=== PATIENT | male | born 1960 | race Caucasian/White ===

== ENCOUNTER 2021-08-14 13:00 | Day surgery (SDC) | payer OTHER ==
[2021-08-14 13:19] LABS: BASOPHILS # (AUTO) 0.1 10^3/uL (0.0-0.1); BASOPHILS % (AUTO) 0.9 %; EOSINOPHILS # (AUTO) 0.2 10^3/uL (0.0-0.7); EOSINOPHILS % (AUTO) 2.6 %; HCT - HEMATOCRIT 52.1 % (42.0-52.0); HGB - HEMOGLOBIN 17.6 g/dL (14.0-18.0); LYMPHOCYTES % (AUTO) 35.1 %; MEAN CORPUSCULAR HEMOGLOBIN 32.5 pg (27.0-31.0); MEAN CORPUSCULAR HGB CONC 33.8 g/dL (32.0-36.0); MEAN CORPUSCULAR VOLUME 96.1 fL (80.0-94.0); MEAN PLATELET VOLUME 9.8 fL (7.4-11.4); MONOCYTES # (AUTO) 0.7 10^3/uL (0.0-1.0); MONOCYTES % (AUTO) 12.4 %; NEUTROPHILS # (AUTO) 2.9 10^3/uL (1.5-6.6); NEUTROPHILS % (AUTO) 48.8 %; PLT - PLATELET COUNT 194 10^3/uL (130-450); RED BLOOD COUNT 5.42 10^6/uL (4.70-6.10); RED CELL DISTRIBUTION WIDTH 13.1 % (12.0-15.0); WHITE BLOOD COUNT 5.8 x10^3/uL (4.8-10.8)
[2021-08-14 13:31] LABS: ALBUMIN 4.3 g/dL (3.2-5.5); ALBUMIN/GLOBULIN RATIO 1.4 (1.0-2.2); BILIRUBIN,TOTAL 0.9 mg/dL (0.2-1.0); CALCIUM 9.6 mg/dL (8.5-10.3); CREATININE 1.5 mg/dL (0.6-1.2); POTASSIUM 4.6 mmol/L (3.5-5.0); TOTAL PROTEIN 7.4 g/dL (6.7-8.2)
[2021-08-14] MEDS ORDERED: HYDROmorphone 1 MG/ML CARPUJECT IVP STA (14:45)
[2021-08-14] MEDS ORDERED: MIDAZOLAM 2 MG/2 ML VIAL IVP STA (14:45)
--- NOTE | 2021-08-14 14:46 | ED Physician Documentation ---
PD HPI ABD PAIN - Stated complaint Stated Complaint: HERNIA PX - Chief complaint Chief Complaint: Abd Pain - History obtained from History obtained from: Patient - Additional information Additional information: 61-year-old gentleman with longstanding umbilical hernia. Only has bothered him mildly in the past. Over the 36 hours preceding his ER visit he has had progressive pain and discomfort there. Nausea but no vomiting. He has had slightly diminished bowel movements but not absent. No history of abdominal surgeries except for kidney stone removal. Review of Systems Ten Systems: 10 systems reviewed and negative Constitutional: reports: Reviewed and negative Eyes: reports: Reviewed and negative Ears: reports: Reviewed and negative PD PAST MEDICAL HISTORY - Allergies Allergies/Adverse Reactions: Allergies Allergy/AdvReac Type Severity Reaction Status Date / Time No Known Drug Allergies Allergy Verified 08/14/21 13:09 PD ED PE NORMAL - Vitals Vital signs reviewed: Yes - General General: Alert and oriented X 3, No acute distress - HEENT HEENT: PERRL, EOMI, Pharynx benign - Neck Neck: Supple, no meningeal sign, No bony TTP - Cardiac Cardiac: RRR, No murmur - Respiratory Respiratory: No respiratory distress, Clear bilaterally - Abdomen Abdomen: Other (He has a incarcerated umbilical hernia which is profoundly tender no diffuse tenderness of the abdomen.) - Extremities Extremities: No edema, No calf tenderness / cord - Neuro Neuro: Alert and oriented X 3, Normal speech Results - Vitals Vitals: Vital Signs - 24 hr 08/14/21 08/14/21 08/14/21 13:07 15:07 15:30 Temperature 36.7 C Heart Rate 69 63 60 Respiratory 16 11 L 10 L Rate Blood Pressure 141/93 H 134/97 H 134/97 H O2 Saturation 99 98 94 08/14/21 17:39 Temperature Heart Rate 65 Respiratory 11 L Rate Blood Pressure 126/93 H O2 Saturation 96 Oxygen O2 Source Room air - Labs Labs: Laboratory Tests 08/14/21 08/14/21 08/14/21 13:16 13:16 14:58 WBC 5.8 RBC 5.42 Hgb 17.6 Hct 52.1 H MCV 96.1 H MCH 32.5 H MCHC 33.8 RDW 13.1 Plt Count 194 MPV 9.8 Neut # (Auto) 2.9 Lymph # (Auto) 2.0 [place] # (Auto) 0.7 Eos # (Auto) 0.2 Baso # (Auto) 0.1 Absolute Nucleated RBC 0.00 Nucleated RBC % 0.0 Sodium 138 Potassium 4.6 Chloride 100 L Carbon Dioxide 28 Anion Gap 10.0 BUN 23 H Creatinine 1.5 H Estimated GFR (MDRD) 48 L Glucose 97 Calcium 9.6 Total Bilirubin 0.9 AST 23 ALT 25 Alkaline Phosphatase 66 Total Protein 7.4 Albumin 4.3 Globulin 3.1 Albumin/Globulin Ratio 1.4 Lipase 30 Urine Color YELLOW Urine Clarity CLEAR Urine pH 5.5 Ur Specific [place] >=1.030 H Urine Protein NEGATIVE Urine Glucose (UA) NEGATIVE Urine Ketones NEGATIVE Urine Occult Blood TRACE-INTA Urine Nitrite NEGATIVE Urine Bilirubin NEGATIVE Urine Urobilinogen 0.2 (NORMAL) Ur Leukocyte Esterase NEGATIVE Ur Microscopic Review NOT INDICATED Urine Culture Comments NOT INDICATED Nasal Adenovirus (PCR) Nasal B. parapertussis DNA (PCR) Nasal Coronavir 229E PCR Nasal Coronavir HKU1 PCR Nasal Coronavir NL63 PCR Nasal Coronavir OC43 PCR Nasal Enterovir/Rhinovir PCR Nasal Influenza B PCR Nasal Influenza A PCR Nasal Parainfluen 1 PCR Nasal Parainfluen 2 PCR Nasal Parainfluen 3 PCR Nasal Parainfluen 4 PCR Nasal RSV (PCR) Nasal B.pertussis DNA PCR Nasal C.pneumoniae (PCR) [place] Human Metapneumo PCR Nasal M.pneumoniae (PCR) Nasal SARS-CoV-2 (PCR) 08/14/21 16:55 WBC RBC Hgb Hct MCV MCH MCHC RDW Plt Count MPV Neut # (Auto) Lymph # (Auto) [place] # (Auto) Eos # (Auto) Baso # (Auto) Absolute Nucleated RBC Nucleated RBC % Sodium Potassium Chloride Carbon Dioxide Anion Gap BUN Creatinine Estimated GFR (MDRD) Glucose Calcium Total Bilirubin AST ALT Alkaline Phosphatase Total Protein Albumin Globulin Albumin/Globulin Ratio Lipase Urine Color Urine Clarity Urine pH Ur Specific [place] Urine Protein Urine Glucose (UA) Urine Ketones Urine Occult Blood Urine Nitrite Urine Bilirubin Urine Urobilinogen Ur Leukocyte Esterase Ur Microscopic Review Urine Culture Comments Nasal Adenovirus (PCR) NOT DETECTED Nasal B. parapertussis DNA (PCR) NOT DETECTED Nasal Coronavir 229E PCR NOT DETECTED Nasal Coronavir HKU1 PCR NOT DETECTED Nasal Coronavir NL63 PCR NOT DETECTED Nasal Coronavir OC43 PCR NOT DETECTED Nasal Enterovir/Rhinovir PCR NOT DETECTED Nasal Influenza B PCR NOT DETECTED Nasal Influenza A PCR NOT DETECTED Nasal Parainfluen 1 PCR NOT DETECTED Nasal Parainfluen 2 PCR NOT DETECTED Nasal Parainfluen 3 PCR NOT DETECTED Nasal Parainfluen 4 PCR NOT DETECTED Nasal RSV (PCR) NOT DETECTED Nasal B.pertussis DNA PCR NOT DETECTED Nasal C.pneumoniae (PCR) NOT DETECTED Naz[place] Human Metapneumo PCR NOT DETECTED Nasal M.pneumoniae (PCR) NOT DETECTED Nasal SARS-CoV-2 (PCR) NOT DETECTED PD MEDICAL DECISION MAKING - ED course ED course: 61-year-old gentleman with an incarcerated umbilical hernia. He did not to lerate attempts at reduction on initial examination but after the administration of 1 mg each of IV Dilaudid and Versed he tolerated this and I was able to get at least partial reduction. There is still some hernia sac mass and a question of whether or not there was persistent incarceration and a CT was ordered. There is no diffuse abdominal tenderness though. CT demonstrated persistent fat in the hernia and Dr. Medina saw the patient and felt he had an incarceration and plans to take him to the operating room for operative fixation. Departure - Departure Disposition: ED Transfer to [facility] Clinical Impression: Incarcerated umbilical hernia Condition: Stable Discharge Date/Time: 08/14/21 18:00
[2021-08-14 15:12] LABS: BILIRUBIN,URINE NEGATIVE (NEGATIVE); GLUCOSE, URINE (UA) NEGATIVE (NEGATIVE); KETONES,URINE (UA) NEGATIVE (NEGATIVE); LEUKOCYTE ESTERASE, URINE NEGATIVE (NEGATIVE); NITRITE,URINE NEGATIVE (NEGATIVE); OCCULT BLOOD,URINE TRACE-INTA (NEGATIVE); PH,URINE 5.5 PH (5.0-7.5); PROTEIN,URINE NEGATIVE (NEGATIVE); UROBILINOGEN,URINE 0.2 (NORMAL) E.U./dL (NORMAL)
[2021-08-14 15:13] LABS: CLARITY,URINE CLEAR (CLEAR)
[2021-08-14] MEDS ORDERED: IOPAMIDOL-300 100 ML VIAL ONE (16:20)
[2021-08-14] MEDS ORDERED: IOPAMIDOL-300 100 ML VIAL IVP ONE (16:45)
--- NOTE | 2021-08-14 16:46 | CT Report ---
PROCEDURE: Abdomen/Pelvis W INDICATIONS: IV only, umbilical hernia, ? contents CONTRAST: IV CONTRAST: Isovue 300 ml: 100 PO CONTRAST: *NO PO CONTRAST TECHNIQUE: After the administration of IV contrast, 5 mm thick sections acquired from the diaphragms to the symp hysis. 5 mm thick coronal and sagittal reformats were acquired. For radiation dose reduction, the f ollowing was used: automated exposure control, adjustment of mA and/or kV according to patient size. COMPARISON: None. FINDINGS: Image quality: Excellent. ABDOMEN: Lung bases: Lung bases are clear. Heart size is normal. Solid organs: Liver and spleen are normal in size and enhancement. Gallbladder is within normal perdue its Biliary system is non dilated. Pancreas enhances normally. There is mild dilatation of the panc reatic duct within the neck measuring roughly 4 mm. No adrenal nodules. Kidneys demonstrate normal s ize and enhancement, without hydronephrosis. Nonobstructing calculi within the right interpolar kidn ey posteriorly measuring 2 mm. Nonobstructing left inferior pole renal calculus measuring 3 mm. Peritoneum and bowel: Small hiatal hernia. Bowel loops demonstrate normal wall thickness and caliber . Normal appendix. No free fluid or air. Nodes and vessels: No retroperitoneal or mesenteric adenopathy by size criteria. Aorta and inferior vena cava are normal in size. Miscellaneous: There is a 32 mm fat-containing umbilical hernia which demonstrates fat stranding. No bowel contents within the hernia. PELVIS: Genitourinary: Bladder wall thickness is normal. Miscellaneous: No inguinal hernias or adenopathy. Bones: No suspicious bony lesions. No vertebral body compression fractures. IMPRESSION: 1. Fat-containing umbilical hernia which contains fat stranding, suggestive of incarceration. 2. Small hiatal hernia. 3. Mild dilatation of the pancreatic duct. This could be further assessed with MRCP, if clinically in dicated. 4. Nonobstructing renal calculi. Reviewed by: Ernesto Lozano MD on 08/14/2021 4:45 PM PST Approved by: Ernesto Lozano MD on 08/14/2021 4:45 PM PST Station ID: [id number]
--- NOTE | 2021-08-14 17:53 | HISTORY & PHYSICAL EXAMINATION ---
HPI - Admitted From Admitted from: ED - History Obtained From History obtained from: Patient Exam limitations: No limitations - History of Present Illness Pain/Problem Location Description: Abdominal pain at hernia site Severity at the worst: reports: Severe Pain Quality: reports: Sharp, Aching, Cramping Context-Pain started w/: reports: Rest Timing: reports: Constant Duration: reports: Hours: (36 hours) Improved with: reports: Nothing Worsened by: reports: Exertion, Movement, Palpation Associated symptoms: reports: Nausea. denies: Vomiting HPI Comment/Other: Pleasant 61-year-old gentleman who has had an umbilical hernia for several years. He reports he is always known it was kind of on the verge or on the edge of being a problem but it is never hurt like it did about 36 hours ago. He reports at that time he became severely painful. The pain was associated with nausea but no vomiting. He was not able to control it with any maneuvers or any medications and so he presented to the emergency room. In the emergency room he was seen by Dr. Chatman. Dr. Chatman gave him some sedation and tried to reduce it. He feels like he made some progress. The patient feels like it was definitely less painful once Dr. Chatman pushed on it but it has not gone completely away. His nausea is better but he still has significant discomfort and nausea when it is pressed upon.Mr. M[place]inn[place] with his . He has an appointment with a PCP in October. PMH/PSH - Past Medical History : positive: Kidney stones Social & Family Hx - Living Situation Living Arrangement: At home Living Situation: With spouse/s.o. - Social History Does the pt smoke?: No Smoking Status: Never smoker Meds/Allgy - Allergies Allergies/Adverse Reactions: Allergies Allergy/AdvReac Type Severity Reaction Status Date / Time No Known Drug Allergies Allergy Verified 08/14/21 13:09 Review of Systems - Gastrointestinal Gastrointestinal: reports: Abdominal pain, Nausea Exam - Vital Signs Reviewed Vital Signs: Yes Vital Signs: Vital Signs x48h Temp Pulse Resp BP Pulse Ox 08/14/21 17:39 65 11 L 126/93 H 96 08/14/21 15:30 60 10 L 134/97 H 94 08/14/21 15:07 63 11 L 134/97 H 98 08/14/21 13:07 36.7 C 69 16 141/93 H 99 - Physical Exam General Appearance: positive: No acute distress, Alert Eyes Bilateral: positive: Normal inspection, PERRL, EOMI ENT: positive: ENT inspection nml Neck: positive: Nml inspection Respiratory: positive: Chest non-tender, No respiratory distress Cardiovascular: positive: Regular rate & rhythm Peripheral Pulses: positive: 1+ Abdomen: positive: Tenderness, Other (Visible and palpable umbilical hernia. The skin overlying the hernia is bruised but not erythematous. Tender to palpation but no peritoneal signs. No guarding or rebound of the abdominal wall. He is quite protective of the area of the hernia itself.) Back: positive: Nml inspection Skin: positive: Color nml Extremities: positive: Non-tender Neurologic/Psychiatric: positive: Oriented x3 Results - Lab Results Fish Bones: 08/14/21 13:16 08/14/21 13:16 Other Lab Results: Lab Results x24hrs 08/14/21 08/14/21 08/14/21 Range/Units 14:58 13:16 13:16 WBC 5.8 (4.8-10.8) x10^3/uL RBC 5.42 (4.70-6.10) 10^6/uL Hgb 17.6 (14.0-18.0) g/dL Hct 52.1 H (42.0-52.0) % MCV 96.1 H (80.0-94.0) fL MCH 32.5 H (27.0-31.0) pg MCHC 33.8 (32.0-36.0) g/dL RDW 13.1 (12.0-15.0) % Plt Count 194 (130-450) 10^3/uL MPV 9.8 (7.4-11.4) fL Neut # (Auto) 2.9 (1.5-6.6) 10^3/uL Lymph # (Auto) 2.0 (1.5-3.5) 10^3/uL [place] # (Auto) 0.7 (0.0-1.0) 10^3/uL Eos # (Auto) 0.2 (0.0-0.7) 10^3/uL Baso # (Auto) 0.1 (0.0-0.1) 10^3/uL Absolute Nucleated RBC 0.00 x10^3/uL Nucleated RBC % 0.0 /100WBC Sodium 138 (135-145) mmol/L Potassium 4.6 (3.5-5.0) mmol/L Chloride 100 L (101-111) mmol/L Carbon Dioxide 28 (21-32) mmol/L Anion Gap 10.0 (6-13) BUN 23 H (6-20) mg/dL Creatinine 1.5 H (0.6-1.2) mg/dL Estimated GFR (MDRD) 48 L (>89) Glucose 97 (70-100) mg/dL Calcium 9.6 (8.5-10.3) mg/dL Total Bilirubin 0.9 (0.2-1.0) mg/dL AST 23 (10-42) IU/L ALT 25 (10-60) IU/L Alkaline Phosphatase 66 (42-121) IU/L Total Protein 7.4 (6.7-8.2) g/dL Albumin 4.3 (3.2-5.5) g/dL Globulin 3.1 (2.1-4.2) g/dL Albumin/Globulin Ratio 1.4 (1.0-2.2) Lipase 30 (22-51) U/L Urine Color YELLOW Urine Clarity CLEAR (CLEAR) Urine pH 5.5 (5.0-7.5) PH Ur Specific [place] >=1.030 H (1.002-1.030) Urine Protein NEGATIVE (NEGATIVE) mg/dL Urine Glucose (UA) NEGATIVE (NEGATIVE) mg/dL Urine Ketones NEGATIVE (NEGATIVE) mg/dL Urine Occult Blood TRACE-INTA (NEGATIVE) Urine Nitrite NEGATIVE (NEGATIVE) Urine Bilirubin NEGATIVE (NEGATIVE) Urine Urobilinogen 0.2 (NORMAL) (NORMAL) E.U./dL Ur Leukocyte Esterase NEGATIVE (NEGATIVE) Ur Microscopic Review NOT INDICATED Urine Culture Comments NOT INDICATED - Diagnostic Imaging Results Diagnostic Imaging Results Comments: Umbilical hernia containing fat and fat stranding suggestive of inflammation. No definite bowel incarceration at this time. This study was done after attempted reduction. Impression/Plan - Problem List Problem List: 1. Volume contraction likely secondary to pain in nausea. He will need fluid resuscitation. 2. Ventral umbilical hernia containing fat. I do believe that when he was admitted to the emergency room he probably had bowel within it. This is based on his symptoms and his obvious hemoconcentration. I think it is in his best interest to proceed with hernia repair tonight. I have offered him elective repair at a later time but considering he does not have an appointment with his PCP for 3 months he would like to go ahead and get it taken care of if we can do so safely.We have discussed the risks, benefits, and alternatives to umbilical hernia repair and the patient is expressed verbal and written consent to proceed
--- NOTE | 2021-08-14 18:12 | ANESTHESIA ---
Pre-Anesthesia VS, & Labs - Diagnosis umbilical hernia, reduced incarcerated hernia - Procedure umbilical hernia repair with mesh Vital Signs: Temp Pulse Resp BP Pulse Ox 36.7 C 65 11 L 126/93 H 96 08/14/21 13:07 08/14/21 17:39 08/14/21 17:39 08/14/21 17:39 08/14/21 17:39 Height: 6 ft 3 in Weight (kg): 61.235 kg Body Mass Index: 16.9 BMI Classification: Underweight - NPO Last Food Intake: 729 - Lab Results Current Lab Results: Laboratory Tests 08/14/21 13:16: Sodium 138, Potassium 4.6, Chloride 100 L, Carbon Dioxide 28, Anion Gap 10.0, BUN 23 H, Creatinine 1.5 H, Estimated GFR (MDRD) 48 L, Glucose 97, Calcium 9.6, Total Bilirubin 0.9, AST 23, ALT 25, Alkaline Phosphatase 66, Total Protein 7.4, Albumin 4.3, Globulin 3.1, Albumin/Globulin Ratio 1.4, Lipase 30 08/14/21 13:16: WBC 5.8, RBC 5.42, Hgb 17.6, Hct 52.1 H, MCV 96.1 H, MCH 32.5 H, MCHC 33.8, RDW 13.1, Plt Count 194, MPV 9.8, Neut # (Auto) 2.9, Lymph # (Auto) 2.0, [place] # (Auto) 0.7, Eos # (Auto) 0.2, Baso # (Auto) 0.1, Absolute Nucleated RBC 0.00, Nucleated RBC % 0.0 Lab results reviewed: Yes Fish Bones: 08/14/21 13:16 08/14/21 13:16 Home Medications and Allergies allopurinol Allergies/Adverse Reactions: Allergies Allergy/AdvReac Type Severity Reaction Status Date / Time No Known Drug Allergies Allergy Verified 08/14/21 13:09 Anes History & Medical History - Anesthetic History Anesthesia Complications: reports: No previous complications - Medical History Cardiovascular: reports: None Pulmonary: reports: Asthma (exercise induced, does not us inhalors) Gastrointestinal: reports: None Urinary: reports: Kidney stones Neuro: reports: Migraines Musculoskeletal: reports: Chronic back pain Endocrine/Autoimmune: reports: None Blood Disorders: reports: None Skin: reports: None Smoking Status: Never smoker Psychosocial: reports: No issues indicated History of Cancer?: No - Surgical History Urologic: reports: Ureterolithotomy (stones) Orthopedic: reports: Spine surgery (laminectomy x2) Other Past Surgical History: Facial/plastic Exam General: Alert, Oriented x3, Cooperative, No acute distress Dental: WNL Mouth Openin Fingerbreadth Neck Mobility: Normal Mallampati classification: II Thyromental Distance: 4-6 cm Mental/Cognitive Status: Alert/Oriented X3, Normal for patient Plan Anesthesia Type: General Consent for Procedure(s) Verified and Reviewed: Yes Code Status: Attempt Resuscitation ASA classification: 2-Mild systemic disease Is this case an emergency?: Yes
[2021-08-14 18:23] LABS: B. PARAPERTUSSIS- RESP PCR PAN NOT DETECTED; B. PERTUSSIS- RESP PCR PANEL NOT DETECTED; C. PNEUMONIAE- RESP PCR PANEL NOT DETECTED; CORONAVIRUS 229E-RESP PCR NOT DETECTED; CORONAVIRUS HKU1-RESP PCR NOT DETECTED; CORONAVIRUS NL63-RESP PCR NOT DETECTED; CORONAVIRUS OC43-RESP PCR NOT DETECTED; HUMAN METAPNEUMOVIRUS NOT DETECTED; INFLUENZA A- RESP PCR PANEL NOT DETECTED; INFLUENZA B - RESP PCR PANEL NOT DETECTED; M. PNEUMONIAE- RESP PCR PANEL NOT DETECTED; PARAINFLUENZA VIRUS 1 NOT DETECTED; PARAINFLUENZA VIRUS 2 NOT DETECTED; PARAINFLUENZA VIRUS 3 NOT DETECTED; PARAINFLUENZA VIRUS 4 NOT DETECTED; RHINOVIRUS/ENTEROVIRUS NOT DETECTED; RSV- RESP PCR PANEL NOT DETECTED; SARS-CoV-2 -RESP PCR PANEL NOT DETECTED
[2021-08-14] MEDS ORDERED: ceFAZolin 1 GM VIAL IR ONE (18:51)
[2021-08-14] MEDS ORDERED: oxyCODONE/ACET 5/325 Prepack 4 PO STA (18:51)
[2021-08-14] MEDS ORDERED: BUPIVACAINE 0.5% PF 30 ML VIAL INFIL ONE (18:51)
--- NOTE | 2021-08-14 19:19 | OPERATIVE REPORT ---
Operative Report - General Procedure Date: 08/14/21 Planned Procedure: Repair of incarcerated umbilical hernia Pre-Op Diagnosis: Incarcerated umbilical hernia Procedure Performed: Repair of incarcerated umbilical hernia with Ventralex ST hernia mesh system Post Op Diagnosis: Incarcerated umbilical hernia - Procedure Note Primary Surgeon: Adam Anesthesia Provider: ANTHONY Moya Pathology: None IV Fluids (mL): 1,200 Estimated Blood Loss (mL): 5 Indications: Incarcerated umbilical hernia causing bowel obstruction prior to reduction in the emergency room. Findings: 1.5 cm defect containing a knuckle of omentum and densely adhesed to the dermis and surrounding tissue. Complications: None apparent - Other Other Information/Narrative: After obtaining informed consent, the patient is brought to the operating room and placed in the supine position on the operating table. Following successful induction of general endotracheal anesthesia, appropriate padding of all bony prominences, and placement of appropriate monitors, the abdomen was prepped and draped in the standard surgical fashion. A timeout was held per scope protocol. All elements of the surgical safety checklist were followed before, during, and after the procedure. Following infiltration with local anesthetic to create a field block, an incision was created directly through the umbilicus and over the palpable and visible defect. This was carried through the skin and subcutaneous tissue. The umbilical tissue was then freed from the umbilical remnant for complete exposure to the hernia sack. The defect was noted to be approximately 1.5 cm in greatest dimension. The hernia sac itself was approximately 4 cm. The hernia sac was carefully dissected free from the overlying skin and underlying fascial tissue as well as the surrounding areolar tissue. The contents of the sac were eased back into the abdominal cavity without opening the peritoneum. The surgically was then inserted into the defect and the anterior abdominal wall palpated internally to be sure there was enough space for mesh placement. We elected to repair the defect with a 6 cm a portion of Ventralux ST mesh. The mesh was dipped in Ancef solution and into the defect. It was straightened and flattened in the preperitoneal space. Placement was checked and adjusted. Once we were satisfied it was ideal, the tails were trimmed and sewn to the fascia anteriorly. The wound was checked for hemostasis and irrigated with Ancef containing solution The umbilicus was reconstructed with interrupted Vicryl suture. The incision was closed in layers with Vicryl and Monocryl suture and Dermabond was applied to the skin. All sponge, needle, and instrument counts were correct at the conclusion of the case. The patient was allowed awaken from anesthesia without difficulty and taken to the postanesthesia care unit in good condition.
[2021-08-14] MEDS ORDERED: IBUPROFEN 600 MG TABLET PO PRN (19:20)
[2021-08-14] MEDS ORDERED: oxyCODONE 5 MG TABLET PO PRN (19:20)
[2021-08-14] MEDS ORDERED: ACETAMINOPHEN 325 MG TABLET PO PRN (19:20)
[2021-08-14] MEDS ORDERED: ONDANSETRON 4 MG/2 ML VIAL IVP PRN ×2 (19:20→19:28)
[2021-08-14] MEDS ORDERED: LACTATED RINGERS 1,000 ML IV ONE (19:26)
[2021-08-14] MEDS ORDERED: MORPHINE 2 MG/ML CARPUJECT IVP PRN (19:28)
[2021-08-14] MEDS ORDERED: ATROPINE ABBOJECT 1 MG/10 ML SYRINGE IVP PRN (19:28)
[2021-08-14] MEDS ORDERED: NALOXONE 0.4 MG/ML VIAL IVP PRN (19:28)
[2021-08-14] MEDS ORDERED: HYDROmorphone 0.5 MG/0.5 ML SYRINGE IVP PRN (19:28)
[2021-08-14] MEDS ORDERED: fentaNYL 100 MCG/2 ML VIAL IVP PRN (19:28)
--- NOTE | 2021-08-14 19:30 | ANESTHESIA POST OP EVALUATION ---
Anesthesia Post Eval - Post Anesthesia Eval Vitals: Last Vital Signs Temp 36.7 C 08/14/21 13:07 Pulse 65 08/14/21 17:39 Resp 11 L 08/14/21 17:39 BP 126/93 H 08/14/21 17:39 Pulse Ox 96 08/14/21 17:39 CV Function Including HR & BP: Stable Pain Control: Satisfactory Nausea & Vomiting: Negative Mental Status: Baseline Respiratory Status: Airway Patent Hydration Status: Satisfactory Anesthesia Complications: None
[2021-08-14] MEDS ORDERED: LACTATED RINGERS 1,000 ML IV SCH (20:00)
[2021-08-14 20:20] VITALS: BP 149/82
== END 2021-08-14 21:05 | disposition home or self-care (01) ==
LOC: ED 13:00 → SDS 17:07 → MS2 20:13 → SDS 21:05
PROVIDERS: ATTEND Surgery
DX: K42.0 Umbilical hernia with obstruction, without gangrene (principal); Z20.822 Contact with and (suspected) exposure to COVID-19; J45.990 Exercise induced bronchospasm
CPT/HCPCS: 0202U; 36415; 49587; 74177; 80053; 81003; 83690; 85025; 96374; 96375; 99284; 99285; A9270; C1781; J1170; J7120; Q9967; 81001; 87086

== ENCOUNTER 2023-02-03 16:00 | Outpatient (CLI) | payer BC ==
--- NOTE | 2023-02-03 17:32 | Ultrasound Report ---
PROCEDURE: Retroperitoneal INDICATIONS: NEPHROLITHIASIS TECHNIQUE: Real-time scanning was performed of the retroperitoneal organs, with image documentation. COMPARISON: None. FINDINGS: Kidneys: Kidneys are normal in size. Right kidney measures 10.6 cm long; left kidney measures 11.9 cm long. Right renal cortical thickness is 1.8 cm; left renal cortical thickness is 1.4 cm. No maine d masses or hydronephrosis. A 7 mm nonobstructing calcification is present within the right superior pole. Bladder: Pre-void bladder volume is 75 mL. Post-void residual is unchanged, the patient was unable to void. Pre-void images demonstrate no intraluminal masses or stones. On pre-void images, ureteral jets are noted with color Doppler interrogation. (Of note, ureteral jets may not be detectable in u p to 25% of cases due to insufficient differences in specific gravity between ureteral and bladder ur ine). Miscellaneous: No free abdominal fluid. The prostate is enlarged measuring 80 cc. The prostate has a hypoechoic focus measuring 2.9 x 3.2 x 3.2 cm, possibly a mass. IMPRESSION: 1. No acute ultrasound abnormality of the kidneys. 2. Possible prostate mass versus artifact. Please correlate with PSA. Reviewed by: West Gray on 02/03/2023 5:31 PM PDT Approved by: West Gray on 02/03/2023 5:31 PM PDT Station ID: [id number]
== END 2023-02-03 16:01 | disposition home or self-care (01) ==
LOC: DI 16:00
PROVIDERS: ATTEND Internal Medicine Nephrology
DX: N20.0 Calculus of kidney (principal)

== ENCOUNTER 2023-04-29 08:00 | Outpatient (CLI) | payer BC, OTHER ==
--- NOTE | 2023-04-29 16:39 | XRAY Report ---
PROCEDURE: Abdomen 1 View (KUB) INDICATIONS: HISTORY KIDNEY STONES TECHNIQUE: 2 views of the abdomen COMPARISON: None. FINDINGS: Nonobstructive bowel gas pattern. No suspicious calcifications. No definite renal, ureteral or bladder stones are seen by radiograph. Degenerative changes of the lumbar spine. IMPRESSION: No renal stones are seen by radiograph. Reviewed by: German Carlin MD on 04/29/2023 4:37 PM PDT Approved by: German Carlin MD on 04/29/2023 4:37 PM PDT Station ID: [id number]
== END 2023-04-29 23:59 | disposition home or self-care (01) ==
LOC: DI.WOS 08:00
PROVIDERS: ATTEND Urology
DX: N20.0 Calculus of kidney (principal)

== ENCOUNTER 2023-09-04 15:00 | Outpatient (CLI) | payer OTHER ==
[~2023-09-04 15:00] MED LIST: GADOTERATE MEGLUMINE 10 MMOL/20 ML VIAL ONE; GADOTERATE MEGLUMINE 2.5 MMOL/5 ML VIAL ONE; GADOTERATE MEGLUMINE 5 MMOL/10 ML VIAL ONE
[2023-09-04] MEDS ORDERED: GADOTERATE MEGLUMINE 5 MMOL/10 ML VIAL ONE (15:24)
[2023-09-04] MEDS ORDERED: GADOTERATE MEGLUMINE 10 MMOL/20 ML VIAL ONE (15:24)
[2023-09-04 15:48] LABS: CREATININE 1.3 mg/dL (0.6-1.3)
[2023-09-04] MEDS: GADOTERATE MEGLUMINE 10 MMOL/20 ML VIAL IVP ONE (16:44)
--- NOTE | 2023-09-04 17:05 | MRI Report ---
PROCEDURE: PELVIS W/WO INDICATIONS: PROSTATE MASS CONTRAST: CLARISCAN 22.2 ML TECHNIQUE: Coronal ultra fast SE, axial T1 FSE with fat saturation, 3-plane nonbreath-hold T2 FSE. After the ad ministration of contrast, dynamic axial, delayed axial and coronal ultra fast GE or 2-D spoiled GE wi th fat saturation through the pelvis. Optional diffusion weighted imaging and ADC may be performed. COMPARISON: None. FINDINGS: Image quality: Diffusion weighted and dynamic contrast enhanced images are diagnostic. Prostate: Gland size is 5.5 x 5.3 x 4.4 cm; ellipsoid gland volume is 67 mL. Prostate lesions: Lesion 1: Location: Anterior, base, anterior transition zone at midline. This is best seen on axial series 5, image 13 and sagital series 7, image 17. Size: 3.1 x 2.9 cm. T2W signal: Heterogeneous, partially circumscribed. DWI signal: Markedly hyperintense signal (PI-RADS 4-5). ADC signal: Markedly hypointense signal (PI-RADS 4-5). Enhancement: Yes Extracapsular extension: No. No neurovascular involvement. No seminal vesicle involvement. PI-RADS score: 3 Lesion 2: Location: Midline, mid gland, posterior peripheral zone. This is best seen on axial series 5, image 18 and sagital series 7, image 17. Size: 1.3 x 0.9 cm. T2W signal: Circumscribed, homogenous moderate hypointense focus (PI-RADS 4 or 5). DWI signal: Markedly hyperintense signal (PI-RADS 4-5). ADC signal: Markedly hypointense signal (PI-RADS 4-5). Enhancement: Yes Extracapsular extension: No. No neurovascular involvement. No seminal vesicle involvement. PI-RADS score: 4 Genitourinary system: Bladder wall thickness is normal. Distal ureters are non distended. Bowel and peritoneum: No pathologic free pelvic fluid. Inferior colon and small bowel loops are nor mal in caliber. Nodes and vessels: No pelvic or inguinal adenopathy by size criteria. Iliac vessels are normal in c aliber. Soft tissues: No inguinal hernias. Bones: Bone marrow demonstrates normal overall signal. No suspicious bony lesions. IMPRESSION: PI-RADS 3 and 4 lesions, as above. No aggressive osseous abnormality. No pelvic adenopathy by size cr iteria. Reviewed by: Irvin Longo MD on 09/04/2023 5:04 PM PST Approved by: Irvin Longo MD on 09/04/2023 5:04 PM PST Station ID: [id number]
== END 2023-09-04 21:00 | disposition home or self-care (01) ==
LOC: LAB 15:00
PROVIDERS: ATTEND Urology
DX: N42.89 Other specified disorders of prostate (principal)
CPT/HCPCS: 36415; 72197; 82565; A9575

== ENCOUNTER 2023-12-07 08:00 | Day surgery (SDC) | payer OTHER ==
[~2023-12-07 08:00] MED LIST changes: -GADOTERATE MEGLUMINE 10 MMOL/20 ML VIAL ONE; -GADOTERATE MEGLUMINE 2.5 MMOL/5 ML VIAL ONE; -GADOTERATE MEGLUMINE 5 MMOL/10 ML VIAL ONE; +ceFAZolin 2 GM VIAL ONE
[2023-12-07] MEDS: LACTATED RINGERS 1,000 ML IV ONE ×2 (08:02→09:57)
--- NOTE | 2023-12-07 08:46 | ANESTHESIA ---
Pre-Anesthesia VS, & Labs - Diagnosis BPH/BLADDER STONE - Procedure UROLIFT/LASER CYSTOLITHOPAXY Vital Signs: Temp Pulse Resp BP Pulse Ox O2 Flow Rate 36.3 C L 71 7 L 131/84 H 98 12/07/23 08:02 12/07/23 08:02 12/07/23 08:02 12/07/23 08:02 12/07/23 08:02 Height: 6 ft 3 in Weight (kg): 120.2 kg Body Mass Index: 33.1 BMI Classification: Obese - NPO Last Fluid Intake: 0545 Last Food Intake: >8HR Home Medications and Allergies Home Medications: Ambulatory Orders Alfuzosin HCl [Alfuzosin HCl ER] 10 mg PO DAILY 12/01/23 Tadalafil [Cialis] 20 mg PO ONCE PRN 12/01/23 allopurinoL [Allopurinol] 300 mg PO DAILY 12/01/23 Alfuzosin HCl [Alfuzosin HCl ER] 10 mg PO DAILY 12/01/23 Tadalafil [Cialis] 20 mg PO ONCE PRN 12/01/23 allopurinoL [Allopurinol] 300 mg PO DAILY 12/01/23 Allergies/Adverse Reactions: Allergies Allergy/AdvReac Type Severity Reaction Status Date / Time No Known Drug Allergies Allergy Verified 08/14/21 13:09 Anes History & Medical History - Anesthetic History Anesthesia Complications: reports: No previous complications Family history of Anesthesia Complications: Denies - Medical History Cardiovascular: reports: None Pulmonary: reports: None Gastrointestinal: reports: None, GERD (OCASSIONAL SLEEPS UP ON PILLOWS; TOOK TUMS THIS AM) Urinary: reports: Benign prostate hypertrophy, Kidney stones Neuro: reports: Migraines Musculoskeletal: reports: Chronic back pain Endocrine/Autoimmune: reports: None Blood Disorders: reports: None Skin: reports: None Smoking Status: Never smoker Psychosocial: reports: No issues indicated - Surgical History General: reports: Other Urologic: Orthopedic: reports: Spine surgery Exam General: Alert Dental: WNL Mouth Openin Fingerbreadth Neck Mobility: Normal Mallampati classification: II Thyromental Distance: 4-6 cm Respiratory: Lungs clear Cardiovascular: Regular rate Plan Anesthesia Type: General Consent for Procedure(s) Verified and Reviewed: Yes Code Status: Attempt Resuscitation ASA classification: 2-Mild systemic disease Is this case an emergency?: No
[2023-12-07] MEDS ORDERED: NALOXONE 0.4 MG/ML VIAL IVP PRN (08:51)
[2023-12-07] MEDS ORDERED: HYDROmorphone 0.5 MG/0.5 ML SYRINGE IVP PRN (08:51)
[2023-12-07] MEDS ORDERED: ATROPINE ABBOJECT 1 MG/10 ML SYRINGE IVP PRN (08:51)
[2023-12-07] MEDS ORDERED: METOCLOPRAMIDE 10 MG/2 ML VIAL IVP PRN (08:51)
[2023-12-07] MEDS ORDERED: ePHEDrine 50 MG/ML VIAL IVP PRN (08:51)
[2023-12-07] MEDS ORDERED: MORPHINE 2 MG/ML CARPUJECT IVP PRN (08:51)
[2023-12-07] MEDS ORDERED: ONDANSETRON 4 MG/2 ML VIAL IVP PRN ×2 (08:51→09:55)
[2023-12-07] MEDS ORDERED: fentaNYL 100 MCG/2 ML VIAL IVP PRN (08:51)
[2023-12-07] MEDS ORDERED: LIDOCAINE 2% URO-JET 5 ML SYRINGE UR ONE (08:58)
[2023-12-07] MEDS ORDERED: LACTATED RINGERS 1,000 ML IV SCH (09:00)
[2023-12-07] MEDS ORDERED: MIDAZOLAM 2 MG/2 ML VIAL ONE (09:09)
[2023-12-07] MEDS ORDERED: LIDOCAINE-PF 2% 10 ML AMP SUBQ ONE (09:10)
[2023-12-07] MEDS ORDERED: fentaNYL 100 MCG/2 ML VIAL ONE (09:10)
[2023-12-07] MEDS ORDERED: PROPOFOL 200 MG/20 ML VIAL IVP ONE (09:10)
[2023-12-07] MEDS ORDERED: ONDANSETRON 4 MG/2 ML VIAL ONE (09:12)
[2023-12-07] MEDS ORDERED: DEXAMETHASONE 4 MG/ML VIAL ONE (09:12)
[2023-12-07] MEDS: LIDOCAINE 2% URO-JET 5 ML SYRINGE UR ONE (09:37)
[2023-12-07] MEDS ORDERED: HYDROcod/ACETAM 5/325 MG TABLET PO PRN (09:55)
--- NOTE | 2023-12-07 10:01 | Discharge Plan ---
Discharge Plan Problem Reviewed?: Yes Disposition: Home, Self Care Condition: Good Prescriptions: Docusate Sodium 100Mg Capsule [Colace 100Mg Capsule] 100 mg PO DAILY #7 cap HYDROcod/ACETAM 5/325 [Freedom 5/325] 1 tab PO Q4H PRN #10 tablet PRN Reason: Pain Diet: Regular Activity Restrictions: Additional Comments (as instructed) Shower Restrictions: No Driving Restrictions: No Instruction Topics: Carrera Catheter Remove Additional Instructions or Follow Up instructions: Please remove catheter as instructed on Thursday, December 08 in the morning. You will be contacted for follow-up with Dr. Betancourt in roughly 6 weeks time No Smoking: If you smoke, Please STOP! Call for help. Follow-up with: Kyra Martines MD [Primary Care Provider] - Julio Cesar Betancourt MD [Provider Admit Priv/Credential] -
--- NOTE | 2023-12-07 10:07 | OPERATIVE REPORT ---
Operative Report - General Procedure Date: 12/07/23 Planned Procedure: Cystoscopy, cystolitholapaxy, UroLift Pre-Op Diagnosis: Bladder stone, BPH with lower urinary tract symptoms Procedure Performed: Cystoscopy Laser Cystolitholapaxy less than 2 cm UroLift, 5 implants Post Op Diagnosis: Bladder stone, BPH with lower urinary tract symptoms - Procedure Note Primary Surgeon: Serafin Anesthesia Provider: ANTHONY [place] Anesthesia Technique: General LMA Pathology: bladder stones Findings: 1.5cm stellate bladder stone 5 urolift implants, 3 on right side, 2 on left Complications: none - Other Other Information/Narrative: After informed consent the patient was brought to the OR and laid in the supine position. The patient was anesthetized per anesthesia protocols and prepped and draped in usual sterile fashion in the dorsolithotomy position. A formal timeout was performed reconfirming the patient, procedure and laterality. A 22 [place]an cystoscope was advanced into the urinary bladder. He was noted to have bilateral lateral lobe hypertrophy with no significant median lobe. He had a stellate 1.5 cm hard dark brown stone in his bladder. We attempted to crush the stone with the stone broomcorn scraper but it was too hard. We then used a 200 m laser fiber with a power of 1.5 and a rate of 8 to dust the stone into small fragments. These fragments were evacuated and sent for analysis. We then switched out the cystoscope for a UroLift cystoscope. UroLift implants were placed approximately 1 cm distal to the bladder neck on the left and the right side. We then placed 2 implants just proximal to the verumontanum on the left and the right side. We reevaluated using an obturator and could see that there was still a protuberance on the right side which was between the verumontanum and bladder neck.. We placed 5th implant at that location. We reevaluated with a obturator and could see a wide open anterior channel. There was minimal oozing. A Uro-Jet was placed. We placed a 20 [place]an two-way Carrera catheter with 10 cc in the balloon. This concluded the procedure the patient tolerated the procedure well. He will follow-up in 6 weeks time. He will take his catheter out in 2 days time.
--- NOTE | 2023-12-07 10:39 | ANESTHESIA POST OP EVALUATION ---
Anesthesia Post Eval - Post Anesthesia Eval Vitals: Last Vital Signs Temp 36.9 C 12/07/23 10:29 Pulse 61 12/07/23 10:29 Resp 10 L 12/07/23 10:29 BP 132/84 H 12/07/23 10:29 Pulse Ox 97 12/07/23 10:29 O2 Flow Rate CV Function Including HR & BP: Stable Pain Control: Satisfactory Nausea & Vomiting: Negative Mental Status: Baseline Respiratory Status: Airway Patent Hydration Status: Satisfactory Anesthesia Complications: None
[2023-12-07 10:58] VITALS: BP 127/86; O2SAT 95
[2023-12-07] MEDS: HYDROcod/ACETAM 5/325 MG TABLET ONE (11:00)
== END 2023-12-07 08:01 | disposition home or self-care (01) ==
LOC: SDS 08:00
PROVIDERS: ATTEND Urology
DX: N40.1 Benign prostatic hyperplasia with lower urinary tract symptoms (principal); N21.0 Calculus in bladder; R68.89 Other general symptoms and signs; E66.9 Obesity, unspecified; Z68.33 Body mass index [BMI] 33.0-33.9, adult
CPT/HCPCS: 52317; 82365; A9270; C1758; C9740; J7120

== ENCOUNTER 2023-12-09 21:23 | Emergency (ER) | payer OTHER ==
--- NOTE | 2023-12-09 21:42 | ED Physician Documentation ---
PD HPI FEVER - Stated complaint Stated Complaint: - Chief complaint Chief Complaint: UTI - History obtained from History obtained from: Patient - Additional information Additional information: He is postop day 3 from a UroLift and bladder stone removal. Had a catheter that he removed himself this morning on the advice of his urologist. Subsequently he developed shaking chills and significant urinary frequency. He had a temperature of 100.4 at home. No historical alternative cause for fever such as sore throat, runny nose, cough, abdominal pain, or rash. PD PAST MEDICAL HISTORY - Past Medical History Cardiovascular: None Respiratory: Asthma Neuro: Migraines Endocrine/Autoimmune: None GI: None, GERD : Kidney stones Musculoskeletal: Chronic back pain Derm: None - Past Surgical History Past Surgical History: No Ortho: Spine surgery - Present Medications Home Medications: Ambulatory Orders Medication Instructions Recorded Confirmed Alfuzosin HCl [Alfuzosin HCl ER] 10 mg PO DAILY 12/01/23 12/07/23 Tadalafil [Cialis] 20 mg PO ONCE PRN 12/01/23 12/07/23 allopurinoL [Allopurinol] 300 mg PO DAILY 12/01/23 12/07/23 Docusate Sodium 100Mg Capsule 100 mg PO DAILY #7 cap 12/07/23 [Colace 100Mg Capsule] HYDROcod/ACETAM 5/325 [Central 5/325] 1 tab PO Q4H PRN #10 tablet 12/07/23 cephALEXin [Keflex] 500 mg PO Q6H #20 cap 12/09/23 - Allergies Allergies/Adverse Reactions: Allergies Allergy/AdvReac Type Severity Reaction Status Date / Time No Known Drug Allergies Allergy Verified 12/09/23 21:33 - Social History Does the pt smoke?: No Smoking Status: Never smoker Does the pt drink ETOH?: Yes PD ED PE NORMAL - Vitals Vital signs reviewed: Yes - General General: Alert and oriented X 3, No acute distress - Abdomen Abdomen: Normal bowel sounds, Soft, Non tender, Other (Bedside ultrasound demonstrates no significant postvoid residual after urinalysis obtained.) - Derm Derm: Normal color, Warm and dry - Neuro Neuro: Alert and oriented X 3, Normal speech Results - Vitals Vitals: Vital Signs - 24 hr 12/09/23 21:24 Temperature 36.4 C L Heart Rate 91 Respiratory 17 Rate Blood Pressure 160/78 H O2 Saturation 95 Oxygen O2 Source Room air - Labs Labs: Laboratory Tests 12/09/23 12/09/23 12/09/23 21:35 21:55 21:55 WBC 10.0 RBC 4.96 Hgb 16.2 Hct 46.4 MCV 93.5 MCH 32.7 H MCHC 34.9 RDW 12.6 Plt Count 187 MPV 9.8 Neut # (Auto) 6.4 Lymph # (Auto) 2.3 Mcdonald # (Auto) 1.2 H Eos # (Auto) 0.1 Baso # (Auto) 0.0 Absolute Nucleated RBC 0.00 Nucleated RBC % 0.0 Sodium 137 Potassium 3.6 Chloride 105 Carbon Dioxide 25 Anion Gap 7.0 BUN 21 H Creatinine 1.1 Estimated GFR (MDRD) 68 L Glucose 116 H Calcium 9.4 Total Bilirubin 0.6 AST 14 ALT 12 Alkaline Phosphatase 63 Total Protein 6.4 Albumin 3.9 Globulin 2.5 Albumin/Globulin Ratio 1.6 Urine Color YELLOW Urine Clarity CLEAR Urine pH 7.0 Ur Specific [place] 1.015 Urine Protein NEGATIVE Urine Glucose (UA) NEGATIVE Urine Ketones NEGATIVE Urine Occult Blood LARGE H Urine Nitrite NEGATIVE Urine Bilirubin NEGATIVE Urine Urobilinogen 0.2 (NORMAL) Ur Leukocyte Esterase NEGATIVE Urine RBC TNTC H Urine WBC 0-3 Ur Squamous Epith Cells RARE Squamous Urine Bacteria None Seen Ur Microscopic Review INDICATED Urine Culture Comments NOT INDICATED PD Medical Decision Making - ED course ED course: He presents with cystitis like symptoms in the setting of recent Carrera removal and UroLift with bladder stone removal. Workup in the emergency department demonstrates hematuria but no pyuria per se. CBC and CMP were relatively unremarkable. I discussed the case by phone with Dr. Betancourt with the query of doing need to be worried about implant infection and his response was no but did recommend a urine culture and a few days worth of antibiotics. Departure - Departure Disposition: 01 Home, Self Care Clinical Impression: Cystitis Instructions: ED UTI Cystitis Male Prescriptions: cephALEXin [Keflex] 500 mg PO Q6H #20 cap Comments: You were seen today for UTI-like symptoms with fever after removing the Carrera. As discussed, your blood work was relatively unremarkable and your urine showed blood but no obvious signs of infection. I discussed the case by phone with Dr. Betancourt who recommended doing a urine culture and putting you on some antibiotics in the interim. Return for new or worsening symptoms or if not better over the next 48 to 72 hours. I sent your prescription electronically to the [facility] pharmacy at the corner of [address] [id number] and [facility] here in [place]. Dr. Betancourt did not feel that your follow-up needed to be accelerated and less you were not improving with this therapy. Drink plenty of fluids.
[2023-12-09 21:46] LABS: BILIRUBIN,URINE NEGATIVE (NEGATIVE); GLUCOSE, URINE (UA) NEGATIVE (NEGATIVE); KETONES,URINE (UA) NEGATIVE (NEGATIVE); LEUKOCYTE ESTERASE, URINE NEGATIVE (NEGATIVE); NITRITE,URINE NEGATIVE (NEGATIVE); OCCULT BLOOD,URINE LARGE (NEGATIVE); PROTEIN,URINE NEGATIVE (NEGATIVE); UROBILINOGEN,URINE 0.2 (NORMAL) E.U./dL (NORMAL)
[2023-12-09 21:56] LABS: CLARITY,URINE CLEAR (CLEAR)
[2023-12-09 21:59] LABS: BASOPHILS % (AUTO) 0.4 %; EOSINOPHILS # (AUTO) 0.1 10^3/uL (0.0-0.7); EOSINOPHILS % (AUTO) 1.1 %; HCT - HEMATOCRIT 46.4 % (42.0-52.0); HGB - HEMOGLOBIN 16.2 g/dL (14.0-18.0); LYMPHOCYTES # (AUTO) 2.3 10^3/uL (1.5-3.5); LYMPHOCYTES % (AUTO) 22.5 %; MEAN CORPUSCULAR HEMOGLOBIN 32.7 pg (27.0-31.0); MEAN CORPUSCULAR HGB CONC 34.9 g/dL (32.0-36.0); MEAN CORPUSCULAR VOLUME 93.5 fL (80.0-94.0); MEAN PLATELET VOLUME 9.8 fL (7.4-11.4); MONOCYTES # (AUTO) 1.2 10^3/uL (0.0-1.0); MONOCYTES % (AUTO) 11.9 %; NEUTROPHILS # (AUTO) 6.4 10^3/uL (1.5-6.6); NEUTROPHILS % (AUTO) 63.9 %; PLT - PLATELET COUNT 187 10^3/uL (130-450); RED BLOOD COUNT 4.96 10^6/uL (4.70-6.10); RED CELL DISTRIBUTION WIDTH 12.6 % (12.0-15.0)
[2023-12-09 22:10] LABS: BACTERIA,URINE None Seen /HPF (None Seen); RBC,URINE TNTC /HPF (0-5); SQUAMOUS EPITHELIAL CELL,UR RARE Squamous (<= Few); WBC,URINE 0-3 /HPF (0-3)
[2023-12-09 22:28] LABS: ALBUMIN 3.9 g/dL (3.2-5.5); ALBUMIN/GLOBULIN RATIO 1.6 (1.0-2.2); BILIRUBIN,TOTAL 0.6 mg/dL (0.2-1.0); CALCIUM 9.4 mg/dL (8.5-10.3); CREATININE 1.1 mg/dL (0.6-1.3); POTASSIUM 3.6 mmol/L (3.5-4.5); TOTAL PROTEIN 6.4 g/dL (6.4-8.9)
[2023-12-09] MEDS: CEPHALEXIN 250 MG Prepack 8 CAP BOTTLE PO STA (22:40)
[2023-12-09 22:47] VITALS: BP 132/75; O2SAT 98
== END 2023-12-09 22:46 | disposition home or self-care (01) ==
LOC: ED 21:23
DX: N30.91 Cystitis, unspecified with hematuria (principal); Z79.899 Other long term (current) drug therapy
CPT/HCPCS: 36415; 80053; 81001; 81003; 85025; 87086; 99283; 99284